=== PATIENT | female | born 1985 | race Two or more races ===

== ENCOUNTER 2025-10-22 08:50 | Emergency (ER) | payer OTHER ==
[~2025-10-22] VITALS: Ht 180.3 cm; Wt 59.0 kg
[2025-10-22 09:07] VITALS: TEMP 98.4
[2025-10-22] MEDS ORDERED: DOXY100T2 PO (09:31)
[2025-10-22] MEDS ORDERED: CEPH-570 PO (09:31)
[2025-10-22 09:59] VITALS: BP 123/84; O2SAT 98
== END 2025-10-22 09:59 | disposition home or self-care (01) ==
LOC: ER 09:08
DX: L02.416 Cutaneous abscess of left lower limb (principal); L73.9 Follicular disorder, unspecified; Z60.2 Problems related to living alone